=== PATIENT | male | born 1950 | race Caucasian/White ===

== ENCOUNTER 2016-12-10 13:15 | Emergency (ER) | payer MEDICARE, OTHER | END 2016-12-10 16:30 | disposition home or self-care (01) | LOC: ER1 13:15 | DX: N39.0 Urinary tract infection, site not specified (principal); E11.9 Type 2 diabetes mellitus without complications; B35.6 Tinea cruris; I48.91 Unspecified atrial fibrillation; Z79.84 Long term (current) use of oral hypoglycemic drugs; Z79.82 Long term (current) use of aspirin; Z79.891 Long term (current) use of opiate analgesic; Z79.899 Other long term (current) drug therapy | CPT/HCPCS: 36415; 81001; 87086; 99283 ==

== ENCOUNTER 2016-12-24 14:47 | Emergency (ER) | payer MEDICARE, OTHER ==
[2016-12-24 16:16] LABS: HEMOGLOBIN 16.8 gm/dl (14.0-17.5); RED BLOOD COUNT 5.51 M/UL (4.20-5.50); WHITE BLOOD COUNT 9.6 K/UL (4.5-11.0)
[2016-12-24 16:38] LABS: BUN/CREATININE RATIO 27 (0-10)
== END 2016-12-24 18:00 | disposition short-term general hospital (02) ==
LOC: ER1 14:47
PROVIDERS: Student in an Organized Health Care Education/Training Program
DX: I63.9 Cerebral infarction, unspecified (principal); I10 Essential (primary) hypertension; E11.9 Type 2 diabetes mellitus without complications; Z79.82 Long term (current) use of aspirin
CPT/HCPCS: 36415; 70450; 71010; 80053; 82550; 82553; 83874; 84484; 85025; 85610; 85730; 93005; 99291

== ENCOUNTER 2017-03-11 13:44 | Observation (INO) | payer MEDICARE, OTHER ==
[~2017-03-11] VITALS: Ht 170.2 cm; Wt 139.9 kg
[2017-03-11 15:46] LABS: HEMOGLOBIN 16.2 gm/dl (14.0-17.5); RED BLOOD COUNT 5.34 M/UL (4.20-5.50); WHITE BLOOD COUNT 10.8 K/UL (4.5-11.0)
[2017-03-11 16:06] LABS: BUN/CREATININE RATIO 23 (0-10)
[2017-03-11] MEDS ORDERED: NITROSTAT0.4 MG SL (21:12)
[2017-03-11] MEDS ORDERED: LIPITOR TAB 2020 MG PO (21:13)
[2017-03-11] MEDS ORDERED: PROTONIX 40 MG40 M1 PO (21:13)
[2017-03-11] MEDS ORDERED: LEVOTHYROXINE125 MCG PO (21:14)
[2017-03-11] MEDS ORDERED: LISINOPRIL20 MG PO (21:14)
[2017-03-11] MEDS ORDERED: CLOPIDOGREL75 MG PO (21:14)
[2017-03-11] MEDS ORDERED: METOPROLOL SUCC25 MG PO (21:15)
[2017-03-11] MEDS ORDERED: LANTUS100 UNIT/1 SQ (21:16)
[2017-03-11] MEDS ORDERED: GLUCOPHAGE1000 MG PO (21:16)
[2017-03-12 03:38] LABS: HEMOGLOBIN 15.3 gm/dl (14.0-17.5); RED BLOOD COUNT 5.01 M/UL (4.20-5.50); WHITE BLOOD COUNT 11.6 K/UL (4.5-11.0)
[2017-03-12 04:01] LABS: BUN/CREATININE RATIO 35 (0-10)
[2017-03-12] MEDS ORDERED: FLOMAX 0.4 MG0.4 MG PO (16:27)
== END 2017-03-12 17:48 | disposition home or self-care (01) ==
LOC: ER1 13:44 → MED SURG 4 17:55 → ZEROF 17:55 → MED SURG 4 20:36
PROVIDERS: Student in an Organized Health Care Education/Training Program; ADMIT Emergency Medicine
DX: R20.0 Anesthesia of skin (principal); R07.9 Chest pain, unspecified; E11.65 Type 2 diabetes mellitus with hyperglycemia; I10 Essential (primary) hypertension; E78.5 Hyperlipidemia, unspecified; E03.9 Hypothyroidism, unspecified; I25.10 Atherosclerotic heart disease of native coronary artery without angina pectoris; G89.29 Other chronic pain; M54.5 Low back pain; Z79.02 Long term (current) use of antithrombotics/antiplatelets; Z79.84 Long term (current) use of oral hypoglycemic drugs; Z79.899 Other long term (current) drug therapy
CPT/HCPCS: ECHO; 36415; 70450; 70551; 71010; 80048; 80053; 81001; 82550; 82553; 82962; 83036; 83874; 84443; 84484; 85025; 85027; 85610; 85730; 87077; 87086; 87186; 93005; 93306; 93880; 99285; G0378